=== PATIENT | male | born 1965 | race Caucasian/White ===

== ENCOUNTER 2018-12-16 19:56 | Outpatient (CLI) | payer OTHER ==
--- NOTE | 2018-12-17 00:13 | Ultrasound Report ---
Reason: LE CLAUDICATION Procedure Date: 12/16/2018 Accession Number: [id number] / [id number] Procedure: US - Ankle Brachial Index CPT Code: Final Report FULL RESULT: EXAM: BILATERAL ANKLE/BRACHIAL INDEX. EXAM DATE: 12/16/2018 09:10 PM. CLINICAL HISTORY: Lower extremity claudication. COMPARISON: None. TECHNIQUE: A blood pressure cuff and pulse volume recording Doppler ultrasound was used to evaluate the arterial pressures in the arms and ankle. No images were acquired. FINDINGS: Brachial pressure: Right brachial artery: 139 mmHg, Left brachial artery: 135 mmHg, Right ankle pressures: Posterior tibial artery: 125 mmHg, index of 0.9. Left ankle pressures: Posterior tibial artery: 92 mmHg, index 0.7. IMPRESSION: 1. Right ankle/brachial index: 0.9. Borderline abnormal. 2. Left ankle/brachial index: 0.7. Abnormal. ANKLE/BRACHIAL INDEX REFERENCE STANDARDS 1.0-1.4: Normal 0.90-0.99: Borderline < 0.9: Abnormal RADIA
== END 2018-12-16 19:57 | disposition home or self-care (01) ==
LOC: DI 19:56
PROVIDERS: ATTEND Family Medicine
DX: I70.213 Atherosclerosis of native arteries of extremities with intermittent claudication, bilateral legs (principal)
CPT/HCPCS: 93922